=== PATIENT | female | born 2000 | race American Indian/Alaskan Native ===

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

== ENCOUNTER → 2022-10-07 | Outpatient (REF) | payer OTHER ==
[2022-10-07 18:02] LABS: APPEARANCE, URINE HAZY (CLEAR); BACTERIA, URINE AUTO NEGATIVE (NEGATIVE); BILIRUBIN, URINE AUTO NEGATIVE (NEGATIVE); BLOOD, URINE BLOOD 1+ (NEGATIVE); COLOR, URINE YELLOW (YELLOW); GLUCOSE, URINE (UA) AUTO NEGATIVE (NEGATIVE); KETONE, URINE AUTO NEGATIVE (NEGATIVE); LEUKOCYTE ESTERASE, URINE AUTO NEGATIVE (NEGATIVE); MUCUS, URINE SMALL (NEGATIVE); NITRITE, URINE AUTO NEGATIVE (NEGATIVE); PROTEIN, URINE AUTO NEGATIVE (NEGATIVE); RBC, URINE AUTO 0 /HPF (0-3); SPECIFIC GRAVITY URINE AUTO 1.023 (1.002-1.035); SQUAMOUS EPITHELIAL CELL UR AU 3 /HPF (0-6); UROBILINOGEN, URINE AUTO 0.2 mg/dL (0.0-2.0); WBC, URINE AUTO 0 /HPF (0-3)
== END ==
LOC: M LABDRAWC 17:14
PROVIDERS: ATTEND Physician Assistant
DX: R10.9 Unspecified abdominal pain (principal)

== ENCOUNTER → 2023-04-06 | Outpatient (REF) | payer OTHER | LOC: M SFHCCAPE 17:06 | PROVIDERS: ATTEND Physician Assistant Medical | DX: R19.7 Diarrhea, unspecified (principal) ==

== ENCOUNTER → 2023-04-07 | Outpatient (CLI) | payer OTHER | LOC: M CLY 12:00 | PROVIDERS: ATTEND Physician Assistant Medical | DX: R06.02 Shortness of breath (principal); M79.642 Pain in left hand ==

== ENCOUNTER → 2023-04-07 | Outpatient (REF) | payer OTHER ==
[2023-04-07 17:29] LABS: BASO # 0.1 10^3/uL (0.0-0.2); BASO % 0.8 % (0.0-1.0); EOS # 0.3 10^3/uL (0.0-0.5); EOS % 3.4 % (0.0-3.0); HEMATOCRIT 43.7 % (36.0-47.0); HEMOGLOBIN 14.9 g/dl (12.0-15.5); LYMPH # 2.8 10^3/uL (1.5-5.0); LYMPH % 28.7 % (24.0-44.0); MEAN CORPUSCULAR HEMOGLOBIN 31.2 pg (27.0-33.0); MEAN CORPUSCULAR HGB CONC 34.1 g/dl (32.0-36.5); MEAN CORPUSCULAR VOLUME 91.6 fl (80.0-96.0); MONO # 0.6 10^3/uL (0.0-0.8); MONO % 6.2 % (2.0-8.0); NEUTROPHILS # 5.9 10^3/uL (1.5-8.5); NEUTROPHILS % 60.6 % (36.0-66.0); PLATELET COUNT, AUTOMATED 397 10^3/uL (150-450); RED BLOOD COUNT 4.77 10^6/uL (4.00-5.40); WHITE BLOOD COUNT 9.7 10^3/uL (4.0-10.0)
[2023-04-07 17:54] LABS: C REACTIVE PROTEIN QUANTITATIV < 0.40 MG/DL (<1.0)
[2023-04-07 17:56] LABS: ALBUMIN 3.9 G/DL (3.2-5.2); ALKALINE PHOSPHATASE 121 U/L (46-116); ALT/SGPT 29 U/L (7.0-40); AST/SGOT 22 U/L (<34); BILIRUBIN,TOTAL 0.6 MG/DL (0.3-1.2); BLOOD UREA NITROGEN 9 MG/DL (9-23); CALCIUM LEVEL 9.4 MG/DL (8.5-10.1); CARBON DIOXIDE LEVEL 22 MMOL/L (20-31); CHLORIDE LEVEL 107 MMOL/L (98-107); GLOMERULAR FILTRATION RATE > 60.0 (>60); GLUCOSE, FASTING 110 MG/DL (60-100); POTASSIUM SERUM 3.7 MMOL/L (3.5-5.1); SODIUM LEVEL 141 MMOL/L (136-145); TOTAL PROTEIN 7.7 G/DL (5.7-8.2)
[2023-04-07 17:57] LABS: THYROID STIMULATING HORMONE 0.999 uIU/ML (0.55-4.78)
== END ==
LOC: M SFHCCAPE 11:13
PROVIDERS: ATTEND Physician Assistant Medical
DX: R06.02 Shortness of breath (principal); R05.3 Chronic cough

== ENCOUNTER → 2023-05-27 | Outpatient (REF) | payer OTHER ==
[2023-05-27 18:45] LABS: BASO # 0.1 10^3/uL (0.0-0.2); EOS # 0.5 10^3/uL (0.0-0.5); EOS % 4.9 % (0.0-3.0); HEMATOCRIT 44.2 % (36.0-47.0); HEMOGLOBIN 15.5 g/dl (12.0-15.5); LYMPH # 2.9 10^3/uL (1.5-5.0); LYMPH % 30.1 % (24.0-44.0); MEAN CORPUSCULAR HEMOGLOBIN 32.1 pg (27.0-33.0); MEAN CORPUSCULAR HGB CONC 35.1 g/dl (32.0-36.5); MEAN CORPUSCULAR VOLUME 91.5 fl (80.0-96.0); MONO # 0.6 10^3/uL (0.0-0.8); MONO % 5.9 % (2.0-8.0); NEUTROPHILS # 5.5 10^3/uL (1.5-8.5); NEUTROPHILS % 57.7 % (36.0-66.0); PLATELET COUNT, AUTOMATED 452 10^3/uL (150-450); RED BLOOD COUNT 4.83 10^6/uL (4.00-5.40); WHITE BLOOD COUNT 9.5 10^3/uL (4.0-10.0)
[2023-05-27 19:38] LABS: ALBUMIN 4.1 G/DL (3.2-5.2); ALKALINE PHOSPHATASE 136 U/L (46-116); ALT/SGPT 59 U/L (7.0-40); AST/SGOT 40 U/L (<34); BILIRUBIN,TOTAL 0.4 MG/DL (0.3-1.2); BLOOD UREA NITROGEN 9 MG/DL (9-23); CALCIUM LEVEL 9.2 MG/DL (8.5-10.1); CARBON DIOXIDE LEVEL 19 MMOL/L (20-31); CHLORIDE LEVEL 109 MMOL/L (98-107); CREATININE FOR GFR 0.51 MG/DL (0.55-1.30); GLOMERULAR FILTRATION RATE > 60.0 (>60); GLUCOSE, FASTING 83 MG/DL (60-100); POTASSIUM SERUM 4.4 MMOL/L (3.5-5.1); SODIUM LEVEL 140 MMOL/L (136-145); TOTAL PROTEIN 7.8 G/DL (5.7-8.2)
== END ==
LOC: M SFHCCAPE 14:26
PROVIDERS: ATTEND Physician Assistant Medical
DX: R05.3 Chronic cough (principal)

== ENCOUNTER → 2023-05-28 | Outpatient (REF) | payer OTHER ==
[2023-05-28 17:51] LABS: CPK CREATINE PHOSPHOKINASE 84 U/L (34-145)
[2023-05-28 18:31] LABS: HEPATITIS C VIRUS ABY INDEX 0.03 INDEX (<0.8)
[2023-05-28 18:32] LABS: HEPATITIS B CORE ANTIBODY IGM NEGATIVE (NEGATIVE)
[2023-05-28 18:33] LABS: ALBUMIN 3.8 G/DL (3.2-5.2); ALKALINE PHOSPHATASE 124 U/L (46-116); ALT/SGPT 51 U/L (7.0-40); AST/SGOT 31 U/L (<34); BILIRUBIN,DIRECT 0.1 MG/DL (<0.4); BILIRUBIN,TOTAL 0.4 MG/DL (0.3-1.2); TOTAL PROTEIN 7.2 G/DL (5.7-8.2)
== END ==
LOC: M SFHCCLAY 13:59
PROVIDERS: ATTEND Physician Assistant Medical
DX: R06.02 Shortness of breath (principal); R74.8 Abnormal levels of other serum enzymes

== ENCOUNTER → 2023-05-28 | Outpatient (CLI) | payer OTHER | LOC: M CLY 10:41 | PROVIDERS: ATTEND Physician Assistant Medical | DX: R05.3 Chronic cough (principal) ==

== ENCOUNTER 2023-10-21 14:37 | Emergency (ER) | payer OTHER ==
[~2023-10-21] VITALS: Ht 160 cm; Wt 95.5 kg
[~2023-10-21 14:37] MED LIST changes: +RISP-105 PO; -RISP-8 PO
[2023-10-21] MEDS ORDERED: HYDR25TA88 PO (15:52)
[2023-10-21] MEDS: IBUPROFEN 600MG TAB PO ONE (15:56)
[2023-10-21 16:13] LABS: HEMATOCRIT 43.3 % (36.0-47.0); HEMOGLOBIN 15.5 g/dl (12.0-15.5); MEAN CORPUSCULAR HEMOGLOBIN 31.6 pg (27.0-33.0); MEAN CORPUSCULAR HGB CONC 35.8 g/dl (32.0-36.5); MEAN CORPUSCULAR VOLUME 88.2 fl (80.0-96.0); PLATELET COUNT, AUTOMATED 488 10^3/uL (150-450); RED BLOOD COUNT 4.91 10^6/uL (4.00-5.40); WHITE BLOOD COUNT 9.4 10^3/uL (4.0-10.0)
[2023-10-21 16:15] LABS: AMPHETAMINES LEVEL URINE NEGATIVE (NEGATIVE); BARBITURATES URINE NEGATIVE (NEGATIVE)
[2023-10-21 16:16] LABS: BENZODIAZEPINES URINE NEGATIVE (NEGATIVE); COCAINE METABOLITE URINE NEGATIVE (NEGATIVE); METHADONE URINE NEGATIVE (NEGATIVE); OPIATES URINE NEGATIVE (NEGATIVE); PHENCYCLIDINE URINE NEGATIVE (NEGATIVE)
[2023-10-21 16:18] LABS: CANNABINOIDS URINE POSITIVE (NEGATIVE)
[2023-10-21 16:58] LABS: HCG, SERUM QUALITATIVE NEGATIVE (NEGATIVE)
[2023-10-21 17:23] LABS: ETHYL ALCOHOL (ETHANOL) < 0.003 % (0.000-0.010)
[2023-10-21 17:25] LABS: ALBUMIN 4.4 G/DL (3.2-5.2); ALKALINE PHOSPHATASE 130 U/L (46-116); ALT/SGPT 56 U/L (7.0-40); AST/SGOT 27 U/L (<34); BILIRUBIN,DIRECT 0.2 MG/DL (<0.4); BILIRUBIN,TOTAL 0.5 MG/DL (0.3-1.2); BLOOD UREA NITROGEN 9 MG/DL (9-23); CARBON DIOXIDE LEVEL 21 MMOL/L (20-31); CHLORIDE LEVEL 108 MMOL/L (98-107); CREATININE FOR GFR 0.59 MG/DL (0.55-1.30); GLOMERULAR FILTRATION RATE > 60.0 (>60); GLUCOSE, FASTING 98 MG/DL (60-100); POTASSIUM SERUM 4.2 MMOL/L (3.5-5.1); SODIUM LEVEL 141 MMOL/L (136-145); TOTAL PROTEIN 7.8 G/DL (5.7-8.2)
[2023-10-21 17:27] LABS: THYROID STIMULATING HORMONE 0.503 uIU/ML (0.55-4.78)
[2023-10-21 17:29] LABS: SALICYLATE LEVEL < 3.0 MG/DL (<30)
[2023-10-21 19:39] VITALS: BP 137/91; TEMP 96.4; O2SAT 98
== END 2023-10-21 19:41 | disposition home or self-care (01) ==
LOC: M ED 14:37
DX: F43.0 Acute stress reaction (principal); F32.A Depression, unspecified; F41.9 Anxiety disorder, unspecified; F43.10 Post-traumatic stress disorder, unspecified; F51.01 Primary insomnia; F17.200 Nicotine dependence, unspecified, uncomplicated; F12.10 Cannabis abuse, uncomplicated; F10.10 Alcohol abuse, uncomplicated; Z79.899 Other long term (current) drug therapy

== ENCOUNTER → 2023-12-29 | Outpatient (REF) | payer OTHER ==
[~2023-12-29] MED LIST changes: +HYDR25TA88 PO
[2023-12-29 18:02] LABS: ALBUMIN 4.1 G/DL (3.2-5.2); ALKALINE PHOSPHATASE 122 U/L (46-116); ALT/SGPT 67 U/L (7.0-40); AST/SGOT 33 U/L (<34); BILIRUBIN,TOTAL 0.4 MG/DL (0.3-1.2); BLOOD UREA NITROGEN 5 MG/DL (9-23); CALCIUM LEVEL 9.5 MG/DL (8.5-10.1); CARBON DIOXIDE LEVEL 24 MMOL/L (20-31); CHLORIDE LEVEL 108 MMOL/L (98-107); CREATININE FOR GFR 0.63 MG/DL (0.55-1.30); GLOMERULAR FILTRATION RATE > 60.0 (>60); GLUCOSE, FASTING 101 MG/DL (60-100); POTASSIUM SERUM 4.2 MMOL/L (3.5-5.1); SODIUM LEVEL 140 MMOL/L (136-145); TOTAL PROTEIN 7.6 G/DL (5.7-8.2)
[2023-12-29 18:03] LABS: BASO # 0.1 10^3/uL (0.0-0.2); BASO % 1.1 % (0.0-1.0); EOS # 0.5 10^3/uL (0.0-0.5); HEMATOCRIT 43.3 % (36.0-47.0); HEMOGLOBIN 15.2 g/dl (12.0-15.5); LYMPH # 2.6 10^3/uL (1.5-5.0); LYMPH % 25.7 % (24.0-44.0); MEAN CORPUSCULAR HEMOGLOBIN 31.9 pg (27.0-33.0); MEAN CORPUSCULAR HGB CONC 35.1 g/dl (32.0-36.5); MONO # 0.6 10^3/uL (0.0-0.8); MONO % 5.9 % (2.0-8.0); NEUTROPHILS # 6.2 10^3/uL (1.5-8.5); PLATELET COUNT, AUTOMATED 461 10^3/uL (150-450); RED BLOOD COUNT 4.76 10^6/uL (4.00-5.40); WHITE BLOOD COUNT 9.9 10^3/uL (4.0-10.0)
[2023-12-29 18:06] LABS: FREE T4 1.13 NG/DL (0.89-1.76); THYROID STIMULATING HORMONE 1.241 uIU/ML (0.55-4.78)
== END ==
LOC: M SFHCCAPE 10:39
PROVIDERS: ATTEND Physician Assistant Medical
DX: F41.8 Other specified anxiety disorders (principal); R74.8 Abnormal levels of other serum enzymes

== ENCOUNTER → 2024-07-26 | Outpatient (CLI) | payer OTHER | LOC: M CLY 15:32 | PROVIDERS: ATTEND Physician Assistant Medical | DX: J18.9 Pneumonia, unspecified organism (principal) ==

== ENCOUNTER 2024-12-31 01:44 | Inpatient (IN) | payer MEDICAID, OTHER ==
[~2024-12-31] VITALS: Ht 162.6 cm; Wt 102.5 kg
[2024-12-31] VITALS (7 sets, daily range): BP systolic 121–131; BP diastolic 67–78; TEMP 97.3–98.1; O2SAT 95–99
[~2024-12-31 01:44] MED LIST changes: +HYDR-3363 PO; +IBUP-1022 PO; +TRAZ-252 PO
[2024-12-31] MEDS: NS (Normal Saline) 0.9% 1,000 ML IV ONE (01:50)
[2024-12-31 02:04] LABS: BASO # 0.1 10^3/uL (0.0-0.2); BASO % 1.1 % (0.0-1.0); EOS # 0.5 10^3/uL (0.0-0.5); EOS % 4.5 % (0.0-3.0); LYMPH # 3.2 10^3/uL (1.5-5.0); LYMPH % 30.8 % (24.0-44.0); MONO # 0.5 10^3/uL (0.0-0.8); MONO % 5.1 % (2.0-8.0); NEUTROPHILS # 6.0 10^3/uL (1.5-8.5); NEUTROPHILS % 58.2 % (36.0-66.0); PLATELET COUNT, AUTOMATED 410 10^3/uL (150-450)
[2024-12-31 02:29] LABS: ETHYL ALCOHOL (ETHANOL) 0.205 % (0.000-0.010)
[2024-12-31 02:31] LABS: ALT/SGPT 75 U/L (7.0-40); AST/SGOT 54 U/L (<34); CALCIUM LEVEL 9.3 MG/DL (8.5-10.1); CARBON DIOXIDE LEVEL 21 MMOL/L (20-31); CHLORIDE LEVEL 106 MMOL/L (98-107); CREATININE FOR GFR 0.54 MG/DL (0.55-1.30); GLOMERULAR FILTRATION RATE > 90.0 (>60); POTASSIUM SERUM 3.9 MMOL/L (3.5-5.1); SALICYLATE LEVEL < 3.0 MG/DL (<30); SODIUM LEVEL 143 MMOL/L (136-145)
[2024-12-31 02:36] LABS: CPK CREATINE PHOSPHOKINASE 79 U/L (34-145)
[2024-12-31 02:40] LABS: AMPHETAMINES LEVEL URINE NEGATIVE (NEGATIVE); BARBITURATES URINE NEGATIVE (NEGATIVE); BENZODIAZEPINES URINE NEGATIVE (NEGATIVE); COCAINE METABOLITE URINE NEGATIVE (NEGATIVE); METHADONE URINE NEGATIVE (NEGATIVE); OPIATES URINE NEGATIVE (NEGATIVE); PHENCYCLIDINE URINE NEGATIVE (NEGATIVE)
[2024-12-31 02:41] LABS: HCG, SERUM QUALITATIVE NEGATIVE (NEGATIVE)
[2024-12-31 02:41] LABS: CANNABINOIDS URINE POSITIVE (NEGATIVE)
[2024-12-31] MEDS: diphenhydrAMINE 50 MG/ML VIAL IM ONE (03:54)
[2024-12-31] MEDS: HALOPERIDOL LACTATE 5 MG/ML VIAL IM ONE (03:54)
[2024-12-31 04:48] LABS: SALICYLATE LEVEL < 3.0 MG/DL (<30)
[2024-12-31] MEDS: ACETYLCYSTEINE 15,000 MG in D5W 250 ML IV ONE (06:14)
[2024-12-31 07:06] LABS: ALT/SGPT 69 U/L (7.0-40); AST/SGOT 45 U/L (<34); CALCIUM LEVEL 8.5 MG/DL (8.5-10.1); CARBON DIOXIDE LEVEL 17 MMOL/L (20-31); CHLORIDE LEVEL 111 MMOL/L (98-107); CREATININE FOR GFR 0.67 MG/DL (0.55-1.30); GLOMERULAR FILTRATION RATE > 90.0 (>60); POTASSIUM SERUM 3.7 MMOL/L (3.5-5.1); SODIUM LEVEL 146 MMOL/L (136-145)
[2024-12-31] MEDS: ACETYLCYSTEINE 5,000 MG in D5W 500 ML IV ONE (07:13)
[2024-12-31] MEDS ORDERED: FLUO-290 PO (07:13)
[2024-12-31] MEDS ORDERED: FLUTISP NARES (07:13)
[2024-12-31] MEDS ORDERED: LORA-1041 PO (07:13)
[2024-12-31] MEDS ORDERED: HOME MED LIST COMPLETE! XX SCH (07:15)
[2024-12-31] MEDS ORDERED: HALOPERIDOL LACTATE 5 MG/ML VIAL IV PRN (08:20)
[2024-12-31] MEDS: NS 0.45% 1,000 ML IV SCH (08:34)
[2024-12-31] MEDS: ACETYLCYSTEINE 10,000 MG in D5W 1,000 ML IV ONE (13:25)
[2024-12-31] MEDS: FOLIC ACID 1 MG TAB PO SCH (14:29)
[2024-12-31] MEDS: THIAMINE 100 MG TAB PO SCH (14:29)
[2024-12-31] MEDS: MULTIVITAMINS/MINERALS THERAP 1 TAB PO SCH (14:29)
[2025-01-01] VITALS (14 sets, daily range): BP systolic 119–124; BP diastolic 72–82; TEMP 97.3–97.9; O2SAT 96–99
[2025-01-01 04:19] LABS: PLATELET COUNT, AUTOMATED 389 10^3/uL (150-450)
[2025-01-01 04:39] LABS: INR 1.06
[2025-01-01 04:53] LABS: ALT/SGPT 58 U/L (7.0-40); AST/SGOT 47 U/L (<34); CALCIUM LEVEL 8.5 MG/DL (8.5-10.1); CARBON DIOXIDE LEVEL 22 MMOL/L (20-31); CHLORIDE LEVEL 112 MMOL/L (98-107); CREATININE FOR GFR 0.58 MG/DL (0.55-1.30); GLOMERULAR FILTRATION RATE > 90.0 (>60); POTASSIUM SERUM 3.9 MMOL/L (3.5-5.1); SODIUM LEVEL 144 MMOL/L (136-145)
== END 2025-01-01 20:47 | DRG 425 ==
LOC: M ED 01:44 → EDBD 01:44 → M ED INP 08:13 → M MSPAV 10:56
PROVIDERS: ADMIT Internal Medicine Nephrology; ATTEND Internal Medicine Nephrology
DX: E87.20 Acidosis, unspecified (principal); G93.41 Metabolic encephalopathy; F33.1 Major depressive disorder, recurrent, moderate; E66.01 Morbid (severe) obesity due to excess calories; F25.9 Schizoaffective disorder, unspecified; Z78.1 Physical restraint status; F10.920 Alcohol use, unspecified with intoxication, uncomplicated; F12.90 Cannabis use, unspecified, uncomplicated; T39.1X2A Poisoning by 4-Aminophenol derivatives, intentional self-harm, initial encounter; T14.91XA Suicide attempt, initial encounter; F43.10 Post-traumatic stress disorder, unspecified; F41.9 Anxiety disorder, unspecified; Z79.899 Other long term (current) drug therapy; F17.200 Nicotine dependence, unspecified, uncomplicated

== ENCOUNTER 2025-01-01 18:22 | Inpatient (IN) | payer OTHER ==
[~2025-01-01 18:22] MED LIST changes: +FLUO-290 PO; +FLUTISP NARES; +LORA-1041 PO
[2025-01-01] MEDS ORDERED: MOM 30 ML SUSPENSION UDC PO PRN (20:05)
[2025-01-01] MEDS ORDERED: ACETAMINOPHEN 325 MG TAB PO PRN (20:05)
[2025-01-01] MEDS ORDERED: MAALOX 30 ML SUSP *UDC PO PRN (20:05)
[2025-01-01 21:35] VITALS: BP 119/79
[2025-01-01 21:49] VITALS: BP 119/79; TEMP 97.3; O2SAT 100
[2025-01-01] MEDS: THIAMINE 100 MG TAB PO SCH (21:52)
[2025-01-01] MEDS: traZODone 50 MG TAB PO PRN (21:52)
[2025-01-02] MEDS: FOLIC ACID 1 MG TAB PO SCH (08:12)
[2025-01-02] MEDS: MULTIVITAMINS/MINERALS THERAP 1 TAB PO SCH (08:12)
[2025-01-02] MEDS: LORATADINE 10 MG TAB PO SCH (08:12)
[2025-01-02] MEDS ORDERED: FLUTICASONE PROPIONATE 0.05% NASAL SPRAY 16 GM NARES PRN (09:00)
[2025-01-02 09:46] VITALS: BP 124/81
[2025-01-02] MEDS: FLUoxetine 20 MG CAP PO SCH (11:11)
[2025-01-02] MEDS: NICOTINE 21 MG/24 HR 1 EA TRANSDERMAL TD SCH (13:05)
[2025-01-02 15:36] VITALS: BP 149/78; TEMP 97.2; O2SAT 100
[2025-01-02 17:31] VITALS: BP 138/76
[2025-01-02 20:03] VITALS: BP 150/78
[2025-01-03 06:27] VITALS: BP 115/80; TEMP 96.9; O2SAT 99
[2025-01-03 14:50] VITALS: BP 138/84
[2025-01-03 17:14] VITALS: BP 122/59; TEMP 97.1; O2SAT 98
[2025-01-03] MEDS: traZODone 100 MG TAB PO PRN (22:12)
[2025-01-04 06:36] VITALS: BP 104/60; TEMP 96.7; O2SAT 99
[2025-01-04] MEDS ORDERED: NICO21PAT TD (09:18)
[2025-01-04] MEDS ORDERED: HYDR-3363 PO (09:18)
[2025-01-04] MEDS ORDERED: FLUO-365 PO (09:18)
[2025-01-04] MEDS ORDERED: TRAZ-257 PO (09:18)
[2025-01-04] MEDS: IBUPROFEN 400 MG TAB PO PRN (10:03)
== END 2025-01-04 13:52 | disposition home or self-care (01) | DRG 751 ==
LOC: M PSY 20:51
PROVIDERS: ADMIT Internal Medicine; ATTEND Internal Medicine
DX: F33.9 Major depressive disorder, recurrent, unspecified (principal); E66.01 Morbid (severe) obesity due to excess calories; F20.9 Schizophrenia, unspecified; F10.20 Alcohol dependence, uncomplicated; F41.1 Generalized anxiety disorder; F43.10 Post-traumatic stress disorder, unspecified; Z79.899 Other long term (current) drug therapy; F12.90 Cannabis use, unspecified, uncomplicated

== ENCOUNTER 2025-02-04 23:11 | Inpatient (IN) | payer OTHER ==
[~2025-02-04] VITALS: Ht 160 cm; Wt 98.3 kg
[~2025-02-04 23:11] MED LIST changes: +FLUO-365 PO; -IBUP-1022 PO; +IBUP600T42 PO; +NICO21PAT TD
[2025-02-04 23:41] LABS: BASO # 0.1 10^3/uL (0.0-0.2); BASO % 1.1 % (0.0-1.0); EOS # 0.7 10^3/uL (0.0-0.5); EOS % 7.9 % (0.0-3.0); LYMPH # 2.6 10^3/uL (1.5-5.0); LYMPH % 32.1 % (24.0-44.0); MONO # 0.4 10^3/uL (0.0-0.8); MONO % 5.4 % (2.0-8.0); NEUTROPHILS # 4.4 10^3/uL (1.5-8.5); NEUTROPHILS % 53.0 % (36.0-66.0); PLATELET COUNT, AUTOMATED 393 10^3/uL (150-450)
[2025-02-05 00:10] LABS: AMPHETAMINES LEVEL URINE NEGATIVE (NEGATIVE); BARBITURATES URINE NEGATIVE (NEGATIVE); BENZODIAZEPINES URINE NEGATIVE (NEGATIVE); COCAINE METABOLITE URINE NEGATIVE (NEGATIVE); METHADONE URINE NEGATIVE (NEGATIVE)
[2025-02-05 00:11] LABS: OPIATES URINE NEGATIVE (NEGATIVE); PHENCYCLIDINE URINE NEGATIVE (NEGATIVE)
[2025-02-05 00:17] LABS: CANNABINOIDS URINE POSITIVE (NEGATIVE)
[2025-02-05 00:25] LABS: ETHYL ALCOHOL (ETHANOL) 0.271 % (0.000-0.010)
[2025-02-05 00:27] LABS: ALT/SGPT 102 U/L (7.0-40); AST/SGOT 67 U/L (<34); CALCIUM LEVEL 8.7 MG/DL (8.5-10.1); CARBON DIOXIDE LEVEL 22 MMOL/L (20-31); CHLORIDE LEVEL 107 MMOL/L (98-107); CREATININE FOR GFR 0.55 MG/DL (0.55-1.30); GLOMERULAR FILTRATION RATE > 90.0 (>60); POTASSIUM SERUM 4.1 MMOL/L (3.5-5.1); SALICYLATE LEVEL < 3.0 MG/DL (<30); SODIUM LEVEL 143 MMOL/L (136-145)
[2025-02-05 00:31] LABS: CPK CREATINE PHOSPHOKINASE 61 U/L (34-145)
[2025-02-05] MEDS: NS (Normal Saline) 0.9% 1,000 ML IV ONE ×2 (01:38→02:53)
[2025-02-05 05:24] LABS: ALT/SGPT 83 U/L (7.0-40); AST/SGOT 49 U/L (<34)
[2025-02-05] MEDS ORDERED: MAALOX 30 ML SUSP *UDC PO PRN (13:15)
[2025-02-05] MEDS ORDERED: IBUPROFEN 400 MG TAB PO PRN (13:15)
[2025-02-05] MEDS ORDERED: MOM 30 ML SUSPENSION UDC PO PRN (13:15)
[2025-02-05] MEDS ORDERED: HYDR-3363 PO (13:52)
[2025-02-05] MEDS ORDERED: NICO1DIS12 TOP (13:52)
[2025-02-05] MEDS ORDERED: FLUO-365 PO (13:52)
[2025-02-05] MEDS ORDERED: TRAZ-189 PO (13:52)
[2025-02-05] MEDS ORDERED: HOME MED LIST COMPLETE! XX SCH (13:55)
[2025-02-05 16:09] VITALS: BP 108/64; TEMP 97.1; O2SAT 99
[2025-02-05] MEDS ORDERED: FLUTICASONE PROPIONATE 0.05% NASAL SPRAY 16 GM NARES PRN (21:50)
[2025-02-05] MEDS: traZODone 100 MG TAB PO PRN (22:20)
[2025-02-06] MEDS: ACETAMINOPHEN 325 MG TAB PO PRN (07:42)
[2025-02-06] MEDS: LORATADINE 10 MG TAB PO SCH (08:30)
[2025-02-06] MEDS: FLUoxetine 20 MG CAP PO SCH (08:31)
[2025-02-06] MEDS: NICOTINE 21 MG/24 HR 1 EA TRANSDERMAL TOP SCH (08:31)
[2025-02-06] MEDS: FLUZONE VACCINE TRIVALENT PF(25-26) 0.5ML SYRINGE IM.IMMUN ONE (09:27)
[2025-02-06 15:50] VITALS: BP 125/75; TEMP 97.7; O2SAT 99
[2025-02-07 06:26] VITALS: BP 112/55; TEMP 97.4; O2SAT 100
[2025-02-07] MEDS ORDERED: ONDANSETRON 4MG ORAL DISINTEGRATING TAB SL PRN (11:45)
[2025-02-07 15:15] VITALS: BP 135/70; TEMP 97; O2SAT 100
[2025-02-08 15:08] VITALS: BP 130/78; TEMP 97.3; O2SAT 95
[2025-02-09] MEDS ORDERED: FLUO-290 PO (12:03)
== END 2025-02-09 15:58 | disposition home or self-care (01) | DRG 755 ==
LOC: M ED 23:11 → M ED INP 02-05 13:12 → M PSY 02-05 14:45
PROVIDERS: ADMIT Student in an Organized Health Care Education/Training Program; ATTEND Student in an Organized Health Care Education/Training Program
DX: F43.10 Post-traumatic stress disorder, unspecified (principal); F41.1 Generalized anxiety disorder; F33.9 Major depressive disorder, recurrent, unspecified; R45.851 Suicidal ideations; F10.10 Alcohol abuse, uncomplicated; Z79.899 Other long term (current) drug therapy; E66.9 Obesity, unspecified; Z68.38 Body mass index [BMI] 38.0-38.9, adult; F12.90 Cannabis use, unspecified, uncomplicated

== ENCOUNTER 2025-02-19 08:36 | Inpatient (IN) | payer OTHER ==
[~2025-02-19] VITALS: Ht 160 cm; Wt 96.5 kg
[~2025-02-19 08:36] MED LIST changes: +NICO1DIS12 TOP; +TRAZ-189 PO
[2025-02-19 09:05] LABS: BASO # 0.1 10^3/uL (0.0-0.2); BASO % 0.5 % (0.0-1.0); EOS # 0.1 10^3/uL (0.0-0.5); EOS % 1.4 % (0.0-3.0); LYMPH # 2.7 10^3/uL (1.5-5.0); LYMPH % 29.2 % (24.0-44.0); MONO # 0.6 10^3/uL (0.0-0.8); MONO % 6.7 % (2.0-8.0); NEUTROPHILS # 5.6 10^3/uL (1.5-8.5); NEUTROPHILS % 61.8 % (36.0-66.0); PLATELET COUNT, AUTOMATED 500 10^3/uL (150-450)
[2025-02-19 09:31] LABS: ETHYL ALCOHOL (ETHANOL) 0.228 % (0.000-0.010)
[2025-02-19 09:33] LABS: SALICYLATE LEVEL < 3.0 MG/DL (<30)
[2025-02-19 09:40] LABS: ALT/SGPT 72 U/L (7.0-40); AST/SGOT 51 U/L (<34); CALCIUM LEVEL 8.8 MG/DL (8.5-10.1); CARBON DIOXIDE LEVEL 20 MMOL/L (20-31); CHLORIDE LEVEL 104 MMOL/L (98-107); CPK CREATINE PHOSPHOKINASE 88 U/L (34-145); CREATININE FOR GFR 0.49 MG/DL (0.55-1.30); GLOMERULAR FILTRATION RATE > 90.0 (>60); POTASSIUM SERUM 4.2 MMOL/L (3.5-5.1); SODIUM LEVEL 138 MMOL/L (136-145)
[2025-02-19 09:59] LABS: AMPHETAMINES LEVEL URINE NEGATIVE (NEGATIVE); BENZODIAZEPINES URINE NEGATIVE (NEGATIVE); PHENCYCLIDINE URINE NEGATIVE (NEGATIVE)
[2025-02-19 10:00] LABS: BARBITURATES URINE NEGATIVE (NEGATIVE); COCAINE METABOLITE URINE NEGATIVE (NEGATIVE); METHADONE URINE NEGATIVE (NEGATIVE); OPIATES URINE NEGATIVE (NEGATIVE)
[2025-02-19 10:11] LABS: CANNABINOIDS URINE POSITIVE (NEGATIVE)
[2025-02-19 10:27] LABS: HCG, SERUM QUALITATIVE NEGATIVE (NEGATIVE)
[2025-02-20] MEDS ORDERED: HOME MED LIST COMPLETE! XX SCH (10:00)
[2025-02-20] MEDS ORDERED: FLUTICASONE PROPIONATE 0.05% NASAL SPRAY 16 GM NARES PRN (11:50)
[2025-02-20] MEDS ORDERED: MAALOX 30 ML SUSP *UDC PO PRN (11:50)
[2025-02-20] MEDS ORDERED: LORATADINE 10 MG TAB PO PRN (11:50)
[2025-02-20] MEDS ORDERED: MOM 30 ML SUSPENSION UDC PO PRN (11:50)
[2025-02-20] MEDS: NICOTINE 14 MG/24 HR TRANSDERMAL TD SCH (15:15)
[2025-02-20] MEDS: traZODone 50 MG TAB PO PRN (21:08)
[2025-02-21 06:34] VITALS: BP 103/61; TEMP 97.6; O2SAT 100
[2025-02-21 14:24] VITALS: BP 127/90
[2025-02-21 14:26] VITALS: BP 127/90; TEMP 97.8; O2SAT 99
[2025-02-21] MEDS: THIAMINE 100 MG TAB PO SCH (14:44)
[2025-02-21] MEDS: MULTIVITAMINS/MINERALS THERAP 1 TAB PO SCH (14:44)
[2025-02-21] MEDS: FOLIC ACID 1 MG TAB PO SCH (14:44)
[2025-02-21] MEDS: LORazepam 1 MG TAB PO PRN (21:08)
[2025-02-22 14:39] VITALS: BP 127/61; TEMP 97.8; O2SAT 99
[2025-02-22] MEDS: HALOPERIDOL 5 MG TAB PO PRN (17:09)
[2025-02-23 06:18] VITALS: BP 103/68; TEMP 97.6; O2SAT 100
[2025-02-23] MEDS: TUBERCULIN PPD 5 UNITS/0.1 ML ID ONE (14:22)
[2025-02-23 15:22] VITALS: BP 122/73; TEMP 96.9; O2SAT 99
[2025-02-24 15:24] VITALS: BP 121/77; TEMP 97.4; O2SAT 99
[2025-02-24] MEDS: OLANZapine 5 MG TAB PO PRN (20:21)
[2025-02-25] MEDS: IBUPROFEN 400 MG TAB PO PRN (10:00)
[2025-02-25] MEDS: PPD DOCUMENTATION ENTRY MISC XX ONE (12:12)
[2025-02-25 14:55] VITALS: BP 127/69; TEMP 97.8; O2SAT 100
[2025-02-26] MEDS: ACETAMINOPHEN 325 MG TAB PO PRN (11:25)
[2025-02-26] MEDS: NICOTINE 21 MG/24 HR 1 EA TRANSDERMAL TD SCH (11:44)
[2025-02-26] MEDS: LORazepam 0.5 MG TAB PO PRN (13:13)
[2025-02-26 15:02] VITALS: BP 121/85; TEMP 97.3; O2SAT 100
[2025-02-28 18:44] VITALS: BP 135/69; TEMP 97.1; O2SAT 99
[2025-03-01 15:16] VITALS: BP 118/61; TEMP 97.2; O2SAT 100
[2025-03-01] MEDS: LORazepam 0.5 MG TAB PO PRN (20:43)
[2025-03-02 06:43] VITALS: BP 120/79; TEMP 96.6; O2SAT 100
[2025-03-02 15:50] VITALS: BP 132/67; TEMP 97.1
[2025-03-03 07:05] VITALS: BP 113/67; TEMP 97.1; O2SAT 100
[2025-03-03] MEDS ORDERED: NICO21PAT TD (08:30)
[2025-03-03] MEDS ORDERED: THERTAB19 PO (08:30)
[2025-03-03] MEDS ORDERED: FOLI1TAB11 PO (08:30)
== END 2025-03-03 14:37 | disposition home or self-care (01) | DRG 751 ==
LOC: M ED 08:36 → M ED INP 02-20 11:50 → M PSY 02-20 12:44
PROVIDERS: ADMIT Internal Medicine; ATTEND Internal Medicine
DX: F33.9 Major depressive disorder, recurrent, unspecified (principal); R45.851 Suicidal ideations; F10.10 Alcohol abuse, uncomplicated; F41.1 Generalized anxiety disorder; F43.10 Post-traumatic stress disorder, unspecified; F60.89 Other specific personality disorders; Z62.810 Personal history of physical and sexual abuse in childhood; F12.90 Cannabis use, unspecified, uncomplicated; E66.9 Obesity, unspecified; Z68.31 Body mass index [BMI] 31.0-31.9, adult; Z79.899 Other long term (current) drug therapy; R73.02 Impaired glucose tolerance (oral)